=== PATIENT | male | born 1975 | race Caucasian/White ===

== ENCOUNTER 2017-09-03 20:04 | Emergency (ER) | payer BC ==
[2017-09-03] MEDS ORDERED: NS 1,000 ML IV ONE (20:29)
[2017-09-03] MEDS ORDERED: ACETAMINOPHEN 500 MG TAB PO ONE (20:31)
[2017-09-03 21:02] LABS: PLATELET COUNT 247 10^3/uL (150-400)
[2017-09-03] MEDS ORDERED: AZITHROMYCIN 250 MG TAB PO ONE (21:13)
[2017-09-03 21:24] VITALS: RESP 18; TEMP 99.1; O2SAT 94
--- NOTE | 2017-09-03 21:51 | EDPHY ---
H & P Stated Complaint: c/o headache, fever, sore throat x 6 days, 2 neg flu tests this week Time Seen by Provider: 09/03/17 20:09 HPI/ROS: This patient describes a 6 day history of illness characterized primarily by fevers close to 103 per patient. Along with this he has chills at times. He [facility] days prior to arrival with a negative rapid strep and rapid influenza. He sella a practitioner at the [facility] on Thursday-yesterday with repeat rapid flu negative. And he explains that over the past 24-48 hours he has developed fevers that are no longer responding ibuprofen and Tylenol. Despite taking ibuprofen he continues the fever of 102. He feels associated fatigue and this evening notes a feeling of swelling in his throat and shortness of breath. He explains that he does not have a sore throat only a feeling of tightness in his lower throat region. His father drove him in by private vehicle for further evaluation of his ongoing symptoms of fever for 6 days ROS: Constitutional fatigue fevers chills HEENT: Frontal headache of moderate intensity that improved somewhat with over- the-counter analgesics. No ear pain. No sore throat. No dysphonia. Pulmonary: He denies coughing. He does report the dyspnea and his impression is a get that this is due to a feeling of tightness in his lower throat. Cardiovascular: He reports feeling lightheaded and explains that he felt wobbly on his feet at 1 point today due to this. No chest pain. GI: Nausea but no vomiting. No abdominal pain. No diarrhea. : He reports dark urine but no dysuria. No testicular pain or swelling. Integumentary: No skin rash. He does have diaphoresis. Endocrine: No complaints Psychiatric: Patient feels somewhat anxious and frustrated about his ongoing symptoms. Complete review of symptoms is otherwise negative Source: Patient Exam Limitations: No limitations - Personal History Current Tetanus Diphtheria and Acellular Pertussis (TDAP): Unsure - Medical/Surgical History PMH: Otherwise healthy Hx Asthma: No Hx Chronic Respiratory Disease: No Hx Diabetes: No Hx Cardiac Disease: No Hx Renal Disease: No Hx Cirrhosis: No Hx Alcoholism: No Hx HIV/AIDS: No Hx Splenectomy or Spleen Trauma: No - Family History Significant Family History: No pertinent family hx - Social History Smoking Status: Never smoked Alcohol Use: Rarely Drug Use: Marijuana - Physical Exam Exam: Vital signs notable for fever, mild tachycardia and slightly lower O2 sat of 93 % on room air General Appearance: Alert, no distress. Eyes: Pupils equal and round no pallor or injection. ENT, Mouth: Mucous membranes moist. Oropharynx: No erythema. No drooling stridor or dysphonia. No sinus tenderness to percussion. nose exam is notable for did deviated septum on the left. Respiratory: Clear to auscultation. I do not appreciate rales or rhonchi. Cardiovascular: Tachycardic with no murmur gallop rub Gastrointestinal: Abdomen is soft and nontender, no masses, bowel sounds normal. Back: No CVA tenderness : No testicular tenderness Neurological: GCS 15. No focal deficits. Skin: Diaphoretic. No rash Musculoskeletal: Neck is supple nontender. Extremities are symmetrical, full range of motion. Psychiatric: Mood: Mild anxiety due to symptoms. Otherwise normal DIFFERENTIAL DIAGNOSIS: After history and physical exam differential diagnosis was considered for sinusitis, viral syndrome, pneumonia, UTI, parapharyngeal abscess, mediastinal lymphadenopathy, doubt tracheitis Constitutional: Initial Vital Signs Temperature (C) 38 C 09/03/17 20:12 Heart Rate 113 H 09/03/17 20:12 Respiratory Rate 20 09/03/17 20:12 Blood Pressure 144/108 H 09/03/17 20:12 O2 Sat (%) 93 09/03/17 20:12 O2 Delivery Mode Room Air Allergies/Adverse Reactions: No Known Allergies Allergy (Unverified 01/19/10 09:34) Home Medications: Medication Instructions Recorded Azithromycin [Zithromax] 250 mg PO DAILY #6 tab 09/03/17 Medical Decision Making - Diagnostics Imaging Results: Two view chest x-ray: Left upper lobe it infiltrate Soft tissue neck x-ray: The does appear to be a slight steeple appears to the AP view. I discussed this with Dr. Wood she points out that on the chest x-ray this is much less significant in part of this appearance in the soft tissue neck may be attributable to the patient's body habitus and position of his neck. Imaging: Discussed imaging studies w/ drying machine receiver Radiologist (Soft tissue neck films discussed with Dr. Wood), I viewed and interpreted images myself (Chest x- ray) ED Course/Re-evaluation: IV normal saline bolus Blood cultures drawn Tylenol p.o. patient took ibuprofen shortly prior to arrival Lab findings reveal leukocytosis with a left shift, metabolic panel is normal, venous lactate is normal, urinalysis with microscopic hematuria otherwise normal. PCR influenza pending After review of chest x-ray and labs I ordered ceftriaxone 1 g IV and Zithromax 500 mg p.o. I counseled the patient regarding pneumonia On my read it does appear that the patient has slight soft tissue swelling and soft tissue neck x-rays in the pharynx. I placed a call to Dr. Jeff radiologist who was not currently available at around 9:45 p.m. I spoke with Dr. Wood at around 10:00 p.m. and she feels the patient does not require any further neck imaging in that part of the appearance is due to body habitus in position as the AP view of the chest x-ray also includes for the neck and is not a appeared the have a significant steeple appearance. A 10:00 p.m. I spoke with the patient and he feels less dyspneic at this point & feels improved after IV fluid antibiotics. While the patient has pneumonia with sepsis-pulse greater than 90, elevated white count source of infection, he does not have severe sepsis. Given his improvement with treatment and normal venous lactate, tolerance of p.o. intake and lack of any orthostatic findings I think that he is safe for discharge home. Patient is comfortable with this plan and will continue on Zithromax p.o.. He will follow up with his primary care physician. I counseled regarding community-acquired pneumonia answered all of his questions. - Data Points Laboratory Results: Laboratory Results 09/03/17 20:50 09/03/17 20:50 Medications Given: Discontinued Medications Acetaminophen (Tylenol) 1,000 mg PO EDNOW ONE Stop: 09/03/17 20:32 Last Admin: 09/03/17 20:52 Dose: 1,000 mg Azithromycin (Zithromax) 500 mg PO EDNOW ONE PRN Reason: Protocol Stop: 09/03/17 21:14 Last Admin: 09/03/17 21:27 Dose: 500 mg Sodium Chloride (Ns) 1,000 mls @ 0 mls/hr IV ONCE ONE; Wide Open PRN Reason: Protocol Stop: 09/03/17 20:30 Last Admin: 09/03/17 20:51 Dose: 1,000 mls Ceftriaxone Sodium/Dextrose (Rocephin 1 Gm (Premix)) 50 mls @ 100 mls/hr IV EDNOW ONE PRN Reason: Protocol Stop: 09/03/17 21:41 Last Admin: 09/03/17 21:19 Dose: 50 mls Departure - Departure Disposition: Home, Routine, Self-Care Clinical Impression: Community acquired pneumonia Qualifiers: Laterality: left Lung location: upper lobe of lung Qualified Code(s): J18.1 - Lobar pneumonia, unspecified organism Condition: Good Instructions: Community Acquired Pneumonia (DC) Additional Instructions: Diagnosis: Community-acquired pneumonia Plan: Drink plenty fluids Zithromax antibiotic as prescribed Continue ibuprofen Tylenol for fever and pain control Call your primary care physician to arrange follow-up appointment in 3-5 days No work until 09/08/17 provided your fever has resolved for 24 hours or more and you feel improved. Return to the emergency department if you develop significant worsening of symptoms despite the treatment plan Referrals: NONE *PRIMARY CARE P,. [Primary Care Provider] - As per Instructions Stand Alone Forms: Work Excuse Prescriptions: Azithromycin [Zithromax] 250 mg PO DAILY #6 tab
[2017-09-03 22:21] VITALS: BP 139/82; PULSE 85
== END 2017-09-03 22:27 | disposition home or self-care (01) ==
LOC: CED 20:04
DX: J18.9 Pneumonia, unspecified organism (principal); E86.9 Volume depletion, unspecified
CPT/HCPCS: 70360-PO; 71046-PO; 80048-PO; 81003-PO; 81015-PO; 83605-PO; 85025-PO; 96365; J0696

== ENCOUNTER → 2018-03-03 | Outpatient (CLI) | payer BC | LOC: CIMAGING 18:44 | PROVIDERS: ATTEND Family Medicine | DX: M25.561 Pain in right knee (principal) | CPT/HCPCS: 73560-PO ==

== ENCOUNTER → 2018-09-16 | Outpatient (CLI) | payer BC, OTHER | LOC: CIMAGING 10:35 | PROVIDERS: ATTEND Family Medicine | DX: M79.89 Other specified soft tissue disorders (principal) | CPT/HCPCS: 93971-PO ==

== ENCOUNTER → 2018-12-01 | Outpatient (CLI) | payer BC | LOC: EMCIMAGING 07:54 | PROVIDERS: ATTEND Family Medicine | DX: M23.221 Derangement of posterior horn of medial meniscus due to old tear or injury, right knee (principal); M71.21 Synovial cyst of popliteal space [Baker], right knee; M25.461 Effusion, right knee; M71.561 Other bursitis, not elsewhere classified, right knee | CPT/HCPCS: 73721-PN ==